=== PATIENT | female | born 1975 | race Caucasian/White ===

== ENCOUNTER → 2017-06-08 17:22 | Outpatient (CLI) | payer BC, SELFPAY ==
--- NOTE | 2017-06-08 17:35 | US_ITS ---
STUDY: ULTRASOUND OF THE FEMALE PELVIS - COMPLETE REASON FOR EXAM: Female, 41 years old. Pelvic pain TECHNIQUE: Transvaginal COMPARISON: October 25, 2010 FINDINGS: The uterus is anteverted and is in a midline position. The uterus measures 9.8x3.9x. cm. Normal uterine cervix. The endometrium measures 3 mm in thickness, and is hyperechoic. There is no demonstrated endometrial mass. There is no demonstrated myometrial mass. I.U.D. - The patient does have an I.U.D. The right ovary is visualized. The right ovary measures 2.7x2.2x1.7 cm. There is no right ovarian cyst or ovarian mass. There is no visualized right adnexal mass or complex lesion. There is normal arterial and normal venous vascularity. The left ovary is visualized. The left ovary measures 5x4.2x3.5 cm. There is a 36 x 38 x 30mm left ovarian cyst with a single internal septation. There is no visualized left adnexal mass or complex lesion. There is normal arterial and normal venous vascularity. There is no fluid in the cul-de-sac. The pre void volume of the bladder was 498 ml. US/Pelvic (Non ) IMPRESSION: The patient does have an I.U.D. 38mm septated left ovary cyst. Electronically Signed: Jeronimo Dickinson MD at 19:07 EDT , Service support ,
--- NOTE | 2017-06-08 17:48 | US_ITS ---
STUDY: ULTRASOUND OF THE FEMALE PELVIS - COMPLETE REASON FOR EXAM: Female, 41 years old. Pelvic pain TECHNIQUE: Transvaginal COMPARISON: October 25, 2010 FINDINGS: The uterus is anteverted and is in a midline position. The uterus measures 9.8x3.9x. cm. Normal uterine cervix. The endometrium measures 3 mm in thickness, and is hyperechoic. There is no demonstrated endometrial mass. There is no demonstrated myometrial mass. I.U.D. - The patient does have an I.U.D. The right ovary is visualized. The right ovary measures 2.7x2.2x1.7 cm. There is no right ovarian cyst or ovarian mass. There is no visualized right adnexal mass or complex lesion. There is normal arterial and normal venous vascularity. The left ovary is visualized. The left ovary measures 5x4.2x3.5 cm. There is a 36 x 38 x 30mm left ovarian cyst with a single internal septation. There is no visualized left adnexal mass or complex lesion. There is normal arterial and normal venous vascularity. There is no fluid in the cul-de-sac. The pre void volume of the bladder was 498 ml. US/Transvaginal Non- IMPRESSION: The patient does have an I.U.D. 38mm septated left ovary cyst. Electronically Signed: Jeronimo Dickinson MD at 19:07 EDT , Service support ,
== END ==
PROVIDERS: Family Provider Family Medicine; PCP Family Medicine; Visit Provider Family Medicine
DX: M54.5 Low back pain (principal); R10.2 Pelvic and perineal pain
CPT/HCPCS: 76830; 76856; 93976

== ENCOUNTER → 2017-06-22 17:30 | Outpatient (CLI) | payer BC, SELFPAY ==
--- NOTE | 2017-06-22 17:17 | BI_ITS ---
MAMMOGRAPHY - BILATERAL SCREENING REASON FOR EXAM: Female, 42 years old. Routine annual screening examination. PERTINENT HISTORY: Non-contributory. TECHNIQUE: Digital bilateral breast ramya (3D mammographic acquisition) in the CC and MLO projections. 2-D mediolateral oblique (MLO) and craniocaudad (CC) views of both breasts were obtained. CAD: Full Field Digital Mammography with Computer Added Detection was performed. COMPARISON: None. Baseline examination. FINDINGS: Breast Composition: There are scattered areas of fibroglandular density. There are no dominant masses or suspicious calcifications. No other significant abnormalities are identified. BI/SCREENING MAMM (CAD), BILAT IMPRESSION: Negative screening mammogram. Yearly followup mammogram recommended. (A) ASSESSMENT CATEGORY: BIRADS Category 1: Negative. A letter regarding these results will be sent to the patient by the facility within 30 days. Approximately 10% of breast cancers are not detected by mammography. A normal mammogram should not delay biopsy of a clinically suspicious abnormality. [id number] Electronically Signed: Reinaldo Harris MD at 9:50 EDT Tel [phone], Service support ,
== END ==
PROVIDERS: Family Provider Family Medicine; PCP Family Medicine; Visit Provider Family Medicine
DX: Z12.31 Encounter for screening mammogram for malignant neoplasm of breast (principal)
CPT/HCPCS: 77063; 77067

== ENCOUNTER → 2017-11-24 09:35 | Outpatient (CLI) | payer BC, SELFPAY ==
--- NOTE | 2017-11-24 09:37 | RAD_ITS ---
STUDY: X-RAY - RIGHT SHOULDER REASON FOR EXAM: Right shoulder pain after a fall 5 months ago. TECHNIQUE: 3 view(s) of the shoulder. COMPARISON: None. FINDINGS: Normal glenohumeral articulation. There is acromioclavicular arthrosis. There is a small os acromiale. Normal humeral head and visualized proximal humerus. The soft tissue structures are unremarkable. Normal visualized pulmonary apex. RAD/Shoulder min 2 Views IMPRESSION: Acromioclavicular arthrosis. Small os acromiale. Electronically Signed: Rob Sepulveda MD at 8:59 EDT Tel , Service support ,
== END ==
PROVIDERS: Family Provider Family Medicine; PCP Family Medicine; Referring Provider Family Medicine; Visit Provider Family Medicine
DX: M75.81 Other shoulder lesions, right shoulder (principal)
CPT/HCPCS: 73030

== ENCOUNTER 2018-02-27 13:00 | Outpatient (RCR) | payer BC, SELFPAY ==
--- NOTE | 2017-11-24 11:33 | HP.PTEVAL_ITS ---
Patient's Visit Information YANA PORRAS is a 42 year old F referred to Physical Therapy by Gisela Staton DO with a diagnosis of RIGHT ROTATOR CUFF TENDONITIS. Date of Evaluation: 11/24/17 Physical Therapist: Nicole Hoffman Visit Plan Frequency: 2-3x /Week Duration: 4-6 Weeks Plan: RIGHT SHOULDER US. POSTURE CORRECTION/STRENGTHENING, INSTRUCTION IN APPROPRIATE BODY MECHANICS AND ACTIVITY MODIFICATIONS. VILLA UE ROM, STRETCHING AND STRENGTHENING. HEP INSTRUCTION. 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 NOT OFF WORK. Disability: NO. Present symptoms: PAIN IN THE ENTIRE RIGHT SHOULDER AND DOWN ARM AND TO PROXIMAL FOREARM. NO NUMBNESS OR TINGLING. NO NECK PAIN. Present since: JUNE 2017. Pain Scale: Worst - 8/10 Least - 1/10. Currently: 03/25. Commenced as a result of: FALL IN DRIVEWAY ON [place] - TRIP OVER A BARRIER NEWLY PUT UP. WEREN'T USE TO IT BEING THERE. CAUGHT HERSELF WITH RIGHT UE. Symptoms at onset: RIGHT SHOULDER. PAIN TRAVELING DOWN ARM CAME LATER. Worse: ANYTHING THAT REQUIRES ME TO LIFT OR REACH. EVERYTHING. Better: NOT A WHOLE LOT BUT FEELS BETTER WITH ELBOW AT SIDE AND ALEVE HELPS SOMETIMES. Disturbed sleep: YES. Previous history/Previous treatment: ONLY TWO MD VISITS. X-RAY AND MRI ORDERED AT APPOINTMENT YESTERDAY. Dizziness: NO. Tinnitis: NO. Nausea: NO. Difficulty Swollowing: NO. Gait: NORMAL. NO OTHER FALLS. Accidents: NO. Unexplained weight loss: NO. Imaging: RIGHT SHOULDER X-RAY TODAY - RESULTS UNKNOWN YET. PMH/Recent major surgery: IDDM - TYPE 2, STOMACH ULCERS, DEPRESSION/ANXIETY. OTHER: PATIENT REPORTS DR. STATON DID NOT THINK SHE HAD A ROTATOR CUFF TEAR IN THE BEGINNING BUT WHEN SHE SAW DR. MICHEL YESTERDAY SHE WAS CONCERNED ABOUT FROZEN SHOULDER AND PARTIAL TEAR. - Objective Sitting Posture/Standing Posture: POOR. Active Correction of posture: NE. Other Observations: INDEP GAIT AND TRANSFERS. Motor deficit: LEFT UE STRENGTH WFL. Sensory deficit: NO. ROM deficit: 104 DEG RIGHT SHOULDER ACTIVE FLEX IN SITTING, 82 DEG ABD. 38 DEG ER AND 47 DEG IR IN SUPINE WITH 75 DEG SHOULDER ABD. PATIENT HAS INCREASED PAIN WITH ROM TESTING ALL PLANES. PASSIVE ROM IS SIMILAR TO AROM. Reflexes: VLILA UE'S 2/3. Dural Signs: NEG. Cervical Mvmt Loss: Flex: NIL. Pro: NIL. Ext: MIN. Ret: MOD. RSB: MIN. LSB: MIN. R Rot: MIN. L Rot: MIN. PATIENT DENIES ANY PAIN WITH CERVICAL ROM TESTING. Postural strength: POOR. Palpation: NO ACUTE TENDERNESS WITH PALPATION OF THE NECK OR SHOULDER REGIONS. ALSO NOT TENDER IN THORACIC SPINE. PATIENT DOES REPORT SOME SORENESS WITH PALPATION DISTAL TO THE ACROMIUM LATERALLY AND ANTERIOR. OTHER: ASSESSMENT OF MH RIGHT SHOULDER X 8 MIN - GOOD TOLERANCE. - Goals Goal 1:: DECREASE C/O RIGHT SHOULDER PAIN Goal Time Frame: 4-6 Weeks Goal 2:: INCREASE FUNCTIONAL ROM OF RIGHT SHOULDER Goal Time Frame: 4-6 Weeks Goal 3:: INCREASE FUNCTIONAL STRENGTH OF RIGHT SHOULDER Goal Time Frame: 4-6 Weeks Goal 4:: INDEP HEP Goal Time Frame: 4-6 Weeks - Rehabilitation Potential Rehabilitation Potential: Fair - Anticipated Interventions Patient/Client Instruction: Educate patient on: Condition, Plan of Care, Risk Factors, Benefits of Fitness Program For the Purpose of:: To improve self management Therapeutic Exercise to Include: Strength training, Body mechanics, Postural training, Passive ROM, Active ROM, Scapular Strength/Stabilization For the Purpose of:: To decrease pain, To increase ROM, To improve muscle performance and motor function, To increase tolerance to acti vity/condition/position, To improve ability of physical actions for home/community/work/leisure, To decrease soft tissue restriction Manual Therapy Techniques to Include: Mobilization, Passive ROM For the Purpose of:: To decrease pain, To increase ROM, To improve nutrient delivery to tissue TENS: Yes Cryotherapy (ice pack, ice massage): Yes Thermo therapy (hot pack): Yes Ultrasound (thermal/non thermal): Yes For the Purpose of:: To decrease pain, To decrease swelling/inflammation, To increase ROM Thank you for the opportunity to evaluate your patient. For Medicare and Medicare HMO plans, please review the plan of care and approve it. It will need to be FAXED BACK to us at [phone] for Medicare purposes. Please let me know if there are questions or concerns regarding this plan of care. Physician Signature: Date:
--- NOTE | 2018-02-16 13:51 | HP.PTREVAL ---
Gisela Theodore, DO, It has been my pleasure to treat YANA PORRAS over the last 4 visits for RIGHT ROTATOR CUFF TENDONITIS. Please see the progress note below for an update on the physical therapy plan of care! Subjective: PATIENT REPORTS SHE HAS NOT HAD THE MONEY TO COME UNTIL NOW. SHE REPORTS SHE HAS NOW SCHEDULED EVERYTHING RECOMMENDED. PATIENT REPORTS SHE HAS ALSO STARTED HAVING LEFT (UNINVOLVED SIDE) HAND AND FINGER PAIN, NUMBNESS AND TINGLING X ABOUT 3 WEEKS. DENIES NECK PAIN. SHE REPORTS SHE HAS NOT SEEN A DOCTOR FOR ANYTHING FOR ABOUT 3 MONTHS BEFORE STARTING PT AND DOES NOT HAVE ANY FOLLOW UP APPOINTMENTS SCHEDULED. PATIENT REPORTS SHE WAS DONIG SOME OF THE HOME EX'S BUT NOT CONSISTANTLY. SHE REPORTS SHE SEEMED TO DO FINE WITH THE HOME EX'S WHEN SHE DID THEM. HAS NOT DONE THEM SINCE MONDAY. PATIENT REPORTS THERE HAS BEEN NO CHANGE IN HER SHOULDER OVER-ALL IN THE LAST 3 MONTHS. Objective/Function: PATIENTS LAST ATTENDED PT APPOINTMENT WAS ABOUT 7 WEEKS AGO. PATIENT IS NOT IMPROVING AND HER DASH AND ROM MEASUREMENTS ARE WORSE THAN LAST VISIT. STANDING RIGHT SHOULDER FLEX 112 DEG, ABD 93 DEG. SUPINE IR/ER WITH 75 DEG ABD = 54/48 DEG. ROM IMPROVED WITH WAND EX'S TODAY. PATIENT DEMONSTRATED AND COMMUNICATED A GOOD UNDERSTANDING OF HOME INSTRUCTIONS AFTER GIVEN. Plan Plan: RIGHT SHOULDER US. POSTURE CORRECTION/STRENGTHENING, INSTRUCTION IN APPROPRIATE BODY MECHANICS AND ACTIVITY MODIFICATIONS. VILLA UE ROM, STRETCHING AND STRENGTHENING. HEP INSTRUCTION. Goals Goal 1:: DECREASE C/O RIGHT SHOULDER PAIN Goal Time Frame: 4-6 Weeks Goal 2:: INCREASE FUNCTIONAL ROM OF RIGHT SHOULDER Goal Time Frame: 4-6 Weeks Goal 3:: INCREASE FUNCTIONAL STRENGTH OF RIGHT SHOULDER Goal Time Frame: 4-6 Weeks Goal 4:: INDEP HEP Goal Time Frame: 4-6 Weeks Anticipated Interventions Patient/Client Instruction: Educate patient on: Condition, Plan of Care, Risk Factors, Benefits of Fitness Program For the Purpose of:: To improve self management Therapeutic Exercise to Include: Strength training, Body mechanics, Postural training, Passive ROM, Active ROM, Scapular Strength/Stabilization For the Purpose of:: To decrease pain, To increase ROM, To improve muscle performance and motor function, To increase tolerance to activity/condition/position, To improve ability of physical actions for home/community/work/leisure, To decrease soft tissue restriction Manual Therapy Techniques to Include: Mobilization, Passive ROM For the Purpose of:: To decrease pain, To increase ROM, To improve nutrient delivery to tissue TENS: Yes Cryotherapy (ice pack, ice massage): Yes Thermo therapy (hot pack): Yes Ultrasound (thermal/non thermal): Yes For the Purpose of:: To decrease pain, To decrease swelling/inflammation, To increase ROM Please do not hesitate to contact me at [phone] by phone or if you have questions or concerns regarding this new plan of care! Sincerely, Nicole Rich, PT, Cert MDT
--- NOTE | 2018-04-12 16:40 | HP.PT.NRP ---
HP - Discharge Summary (1) - Patient Information YANA PORRAS was seen in my office for initial evaluation on 11/24/17. The following Plan of Care was established for this patient: Initial Frequency: 2-3x /Week Initial Duration: 4-6 Weeks - Anticipated Interventions Patient/Client Instruction: Educate patient on: Condition, Plan of Care, Risk Factors, Benefits of Fitness Program For the Purpose of:: To improve self management Therapeutic Exercise to Include: Strength training, Body mechanics, Postural training, Passive ROM, Active ROM, Scapular Strength/Stabilization For the Purpose of:: To decrease pain, To increase ROM, To improve muscle performance and motor function, To increase tolerance to activity/condition/position, To improve ability of physical actions for home/community/work/leisure, To decrease soft tissue restriction Manual Therapy Techniques to Include: Mobilization, Passive ROM For the Purpose of:: To decrease pain, To increase ROM, To improve nutrient delivery to tissue TENS: Yes Cryotherapy (ice pack, ice massage): Yes Thermo therapy (hot pack): Yes Ultrasound (thermal/non thermal): Yes For the Purpose of:: To decrease pain, To decrease swelling/inflammation, To increase ROM This patient was last seen in our office 02/27/18. Pertinent comments regarding their Physical therapy will appear below: This patient has not returned to Physical Therapy and is appropriate to return to MD for further follow-up as needed. At this point I will be discontinuing this patient from physical therapy. I would be happy to see this patient again in the future if found appropriate by the physician. Thank you! Nicole Rich, PT, Cert MDT
== END 2018-02-27 19:00 | disposition home or self-care (01) ==
LOC: PT 13:00
PROVIDERS: Family Provider Family Medicine; PCP Family Medicine; Referring Provider Family Medicine; Visit Provider Family Medicine
DX: M25.511 Pain in right shoulder (principal); M75.81 Other shoulder lesions, right shoulder
CPT/HCPCS: 97035; 97110; 97161; 97530

== ENCOUNTER → 2018-03-05 16:57 | Outpatient (CLI) | payer BC, SELFPAY ==
--- NOTE | 2018-03-05 17:05 | MRI_ITS ---
STUDY: MRI RIGHT SHOULDER REASON FOR EXAM: Female, 42 years old. Pain. Recent fall. Limited range of motion. TECHNIQUE: Standardized fat and water weighted pulse sequences were obtained in all 3 orthogonal planes. COMPARISON: X-ray November 24, 2017 FINDINGS: There is supraspinatus tendinosis with tendon thickening, but without a demonstrated tendon tear. There is infraspinatus tendinosis with tendon thickening, but without a demonstrated tendon tear. Normal subscapularis tendon. Normal teres minor tendon. Normal supraspinatus muscle. Normal infraspinatus muscle. Normal subscapularis muscle. Normal teres minor muscle. There is a small volume joint effusion of the glenohumeral joint. Normal humeral head and visualized proximal humerus. Normal biceps labral complex. There is tendinosis with thickening of the proximal biceps tendon, series 3 images 10/20 through 14/20. There is fluid in the biceps tendon sheath. Normal labrum. Normal capsulo- ligamentous complex. Normal rotator interval. There is mild osteoarthritis of the acromioclavicular articulation. There is a Type II morphology (curved) acromion, with a neutral orientation. There is no subacromial-subdeltoid bursal fluid. Normal visualized coracohumeral and coracoacromial ligaments. Normal quadrilateral space. Normal axillary space. Normal deltoid muscle. Normal trapezius muscle. MRI/Upper Ext Joint Only(Routine) IMPRESSION: Tendinosis of the long head of the biceps. Tendinosis of the supraspinatus and infraspinatus. No full-thickness rotator cuff tear. Electronically Signed: Jonny Rivera MD at 23:28 EST , Service support ,
--- OUTSIDE RECORDS SUMMARY | 2018-05-08 04:35 | XMS RPT_ITS ---
:1975 Author Organization OHIP Care Team Providers Name Role Phone BRITTANY PACKER (TRUCK DRIVER INSTRUCTOR) Attending Unavailable Tayler Kowalski Attending Unavailable PROVIDER, UNKNOWN Referring Unavailable Malys, Gisela Primary Care Unavailable PROVIDER, UNKNOWN Referring Unavailable Malys, Gisela Primary Care Unavailable Alana Swann Attending Unavailable Dex, Tayler Attending Unavailable PROVIDER, UNKNOWN Referring Unavailable Malys, Gisela Primary Care Unavailable PROVIDER, UNKNOWN Referring Unavailable Malys, Gisela Primary Care Unavailable Dex, Tayler Attending Unavailable Malys, Gisela Attending Unavailable Malys, Gisela Referring Unavailable Malys, Gisela Primary Care Unavailable Malys, Gisela Primary Care Unavailable Referred, Self Attending Unavailable Fina, Milton Attending Unavailable Fina, Milton Referring Unavailable Malys, Gisela Primary Care Unavailable Malys, Gisela Attending Unavailable Malys, Gisela Referring Unavailable Malys, Gisela Primary Care Unavailable Malys, Gisela Attending Unavailable Malys, Gisela Referring Unavailable Malys, Gisela Primary Care Unavailable Brittany, Melissa Attending Unavailable Miedel, Melissa Referring Unavailable Malys, Gisela Primary Care Unavailable PROBLEMS PROBLEMS DATE TYPE CONDITION / CODE ATTENDING STATUS SOURCE 03/05/2018 Unknown M25.511 - Pain in Malys, Gisela Active [facility] right shoulder / Community M25.511(ICD-10) Hospital Repository 01/18/2018 Active Unknown / BRITTANY PACKER Active [place] UNK(Unknown) ([facility]) Clinic Main [place] Repository 07/24/2017 Admitting Type 2 diabetes DexEventifier Diagnosis mellitus without System complications / Repository E11.9(ICD-10) 07/24/2017 Admitting Gastro-esophageal Dex XGear Diagnosis reflux disease System without esophagitis Repository / K21.9(ICD-10) 07/24/2017 Admitting Sleep apnea, Dex XGear Diagnosis unspecified / System G47.30(ICD-10) Repository 07/24/2017 Admitting Obesity, Dex XGear Diagnosis unspecified / System E66.9(ICD-10) Repository 07/24/2017 Admitting Body mass index Dex XGear Diagnosis (BMI) 50-59.9 , System adult / Repository Z68.43(ICD-10) 07/24/2017 Admitting senior living (current) Dex XGear Diagnosis use of insulin / System Z79.4(ICD-10) Repository 06/08/2017 Unknown M54.5 - Low back Milton Harden Active [facility] pain / Community M54.5(ICD-10) Hospital Repository 06/08/2017 Unknown R10.2 - Pelvic and Miltno Harden Active [facility] perineal pain / Community R10.2(ICD-10) Hospital Repository PROCEDURES PROCEDURES No Procedure Records FoundRESULTS RESULTS UPPER EXT JOINT Observed: 03/05/2018 Status: F Source: [place] ONLY(ROUTINE) 5:06 PM [facility] HOSPITAL REPOSITORY [facility] Imaging Services [address] [place] [address] Upper Ext Joint Only(Routine) MR#: [id number] Acct: [id number] Name: YANA PORRAS Rep #: [id number] : 1975 F 42 From: Jonny Rivera MD PCP: Gisela Theodore DO Status: REG CLI Study: Upper Ext Joint Only(Routine) Date of Exam: 03/05/18 Exam# [id number] Ordering Dr: Gisela Theodore DO STUDY: MRI RIGHT SHOULDER REASON FOR EXAM: Female, 42 years old. Pain. Recent fall. Limited range of motion. TECHNIQUE: Standardized fat and water weighted pulse sequences were obtained in all 3 orthogonal planes. COMPARISON: X-ray November 24, 2017 FINDINGS: There is supraspinatus tendinosis with tendon thickening, but without a demonstrated tendon tear. There is infraspinatus tendinosis with tendon thickening, but without a demonstrated tendon tear. Normal subscapularis tendon. Normal teres minor tendon. Normal supraspinatus muscle. Normal infraspinatus muscle. Normal subscapularis muscle. Normal teres minor muscle. There is a small volume joint effusion of the glenohumeral joint. Normal humeral head and visualized proximal humerus. Normal biceps labral complex. There is tendinosis with thickening of the proximal biceps tendon, series 3 images 12/02 through . There is fluid in the biceps tendon sheath. Normal labrum. Normal capsulo- ligamentous complex. Normal rotator interval. There is mild osteoarthritis of the acromioclavicular articulation. There is a Type II morphology (curved) acromion, with a neutral orientation. There is no subacromial-subdeltoid bursal fluid. Normal visualized coracohumeral and coracoacromial ligaments. Normal quadrilateral space. Normal axillary space. Normal deltoid muscle. Normal trapezius muscle. MRI/Upper Ext Joint Only(Routine) IMPRESSION: Tendinosis of the long head of the biceps. Tendinosis of the supraspinatus and infraspinatus. No full-thickness rotator cuff tear. Electronically Signed: Jonny Rivera MD at 23:28 EST , Service support , CC: Gisela Theodore DO Human Resource Professional: Signed RE-EVALUATION - PT (1) Observed: 02/19/2018 Status: F Source: [place] 8:31 AM [facility] REPOSITORY [facility] [address] [place] [address]. [address] [place] [address] / REEVALUATION / MEDICARE RECERTIFICATION PHYSICAL THERAPY MR#: [id number] Acct: [id number] Name: YANA PORRAS Rep #: [id number] : 1975 42 From: Nicole Rich PT, Cert. T Referring Dr.: Gisela Theodore DO Status: REG RCR Insurance: [employer] INSURANCE Gisela Theodore DO, It has been my pleasure to treat YANA PORRAS over the last 4 visits for RIGHT ROTATOR CUFF TENDONITIS. Please see the progress note below for an update on the physical therapy plan of care! Subjective: PATIENT REPORTS SHE HAS NOT HAD THE MONEY TO COME UNTIL NOW. SHE REPORTS SHE HAS NOW SCHEDULED EVERYTHING RECOMMENDED. PATIENT REPORTS SHE HAS ALSO STARTED HAVING LEFT (UNINVOLVED SIDE) HAND AND FINGER PAIN, NUMBNESS AND TINGLING X ABOUT 3 WEEKS. DENIES NECK PAIN. SHE REPORTS SHE HAS NOT SEEN A DOCTOR FOR ANYTHING FOR ABOUT 3 MONTHS BEFORE STARTING PT AND DOES NOT HAVE ANY FOLLOW UP APPOINTMENTS SCHEDULED. PATIENT REPORTS SHE WAS DONIG SOME OF THE HOME EX'S BUT NOT CONSISTANTLY. SHE REPORTS SHE SEEMED TO DO FINE WITH THE HOME EX'S WHEN SHE DID THEM. HAS NOT DONE THEM SINCE MONDAY. PATIENT REPORTS THERE HAS BEEN NO CHANGE IN HER SHOULDER OVER-ALL IN THE LAST 3 MONTHS. Objective/Function: PATIENTS LAST ATTENDED PT APPOINTMENT WAS ABOUT 7 WEEKS AGO. PATIENT IS NOT IMPROVING AND HER DASH AND ROM MEASUREMENTS ARE WORSE THAN LAST VISIT. STANDING RIGHT SHOULDER FLEX 112 DEG, ABD 93 DEG. SUPINE IR/ER WITH 75 DEG ABD = 54/48 DEG. ROM IMPROVED WITH WAND EX'S TODAY. PATIENT DEMONSTRATED AND COMMUNICATED A GOOD UNDERSTANDING OF HOME INSTRUCTIONS AFTER GIVEN. Plan Plan: RIGHT SHOULDER US. POSTURE CORRECTION/STRENGTHENING, INSTRUCTION IN APPROPRIATE BODY MECHANICS AND ACTIVITY MODIFICATIONS. VILLA UE ROM, STRETCHING AND STRENGTHENING. HEP INSTRUCTION. Goals Goal 1:: DECREASE C/O RIGHT SHOULDER PAIN Goal Time Frame: 4-6 Weeks Goal 2:: INCREASE FUNCTIONAL ROM OF RIGHT SHOULDER Goal Time Frame: 4-6 Weeks Goal 3:: INCREASE FUNCTIONAL STRENGTH OF RIGHT SHOULDER Goal Time Frame: 4-6 Weeks Goal 4:: INDEP HEP Goal Time Frame: 4-6 Weeks Anticipated Interventions Patient/Client Instruction: Educate patient on: Condition, Plan of Care, Risk Factors, Benefits of Fitness Program For the Purpose of:: To improve self management Therapeutic Exercise to Include: Strength training, Body mechanics, Postural training, Passive ROM, Active ROM, Scapular Strength/Stabilization For the Purpose of:: To decrease pain, To increase ROM, To improve muscle performance and motor function, To increase tolerance to activity/condition/position, To improve ability of physical actions for home/community/work/leisure, To decrease soft tissue restriction Manual Therapy Techniques to Include: Mobilization, Passive ROM For the Purpose of:: To decrease pain, To increase ROM, To improve nutrient delivery to tissue TENS: Yes Cryotherapy (ice pack, ice massage): Yes Thermo therapy (hot pack): Yes Ultrasound (thermal/non thermal): Yes For the Purpose of:: To decrease pain, To decrease swelling/inflammation, To increase ROM Please do not hesitate to contact me at [phone] by phone or if you have questions or concerns regarding this new plan of care! Sincerely, Nicole Rich PT, Cert MDT <Electronically signed by Nicole Rich PT, Cert. MDT> 02/19/18 0831 CC: Gisela Abarcaluiza HIDALGO CHAPINCITO Signed For Medicare only, by signing this I certify the plan of care. Physicians Signature Date CNCO Observed: 01/29/2018 Status: COMPLETED Source: [place] 12:00 AM [facility] REPOSITORY Letter Text Brittany Packer CNP [facility] [address] [place], [place] [address] Yana Zelaya Gregory [facility] [address] [facility] [address] 01/29/2018 CCF #: [id number] Dear Yana, This letter is to inform you that your pap smear came back normal but your HPV (human papilloma virus) was positive. Because of the positive HPV, we will repeat your pap and HPV at your yearly exam next year. If you have any questions, please do not hesitate to call our office or message me on My Chart. We appreciate your confidence in choosing the [facility] for your medical care and we look forward to seeing you at your next appointment. Please feel free to call us if you have any questions regarding your test results at the phone number above. Sincerely, Brittany Packer CNP Observed: 01/19/2018 Status: F Source: [place] TRICHOMONAS PREP 3:45 PM [facility] REPOSITORY Sp. Request/Comment: - Swab Smear Result - Negative for Trichomonas vaginalis antigen This test was developed and its performance characteristics determined by [facility]'s [facility]ent[facility] [place] (-[facility]). It has not been cleared or approved by the FDA. -[facility] is regulated under CLIA as qualified to perform high-complexity testing. This test is used for clinical purposes. It should not be regarded as investigational or for research. Performed By: #### TRICHO #### [facility] [address] [place], [place] [address] HPV W/GENOTYPE Collected: 01/18/2018 Status: F Source: [place] 3:20 PM [facility] REPOSITORY TYPE CODE TESTS RESULT OUT OF RANGE REFERENCE UNITS LAB HPVT16 HPV HighRisk Negative for Type 16 HPV DNA high risk type 16 by PCR. LAB HPVT18 HPV HighRisk Negative for Type 18 HPV DNA high risk type 18 by PCR. LAB HPVHRO Abnormal HPV HighRisk Positive for Alert Other one or more of the following HPV DNA high risk types: 31,33,35,39,45 ,51,52,56,58,5 9,66,68 by PCR Result Comment: This test was developed and its performance characteristics determined by [facility]'s [facility] [place] ([facility] It has not been cleared or approved by the FDA. -[facility] is regulated under CLIA as qualified to perform high-complexity testing. This test is used for clinical purposes. It should not be regarded as inv estigational or for research. Performed By: #### HPVHRR #### [facility] [address] [place], [place] [address] CYTOLOGY Observed: 01/18/2018 Status: C Source: [place] 3:20 PM [facility] REPOSITORY ADDITIONAL PROCEDURES PRESENT Specimen originated from [facility] Specimen #: [id number] Submitting Physician: BRITTANY PACKER SPECIMEN SUBMITTED A: CERVICAL, SCREENING, FLUID FINAL DIAGNOSIS A. CERVICAL, SCREENING, FLUID Satisfactory for interpretation. No endocervical component. Negative for intraepithelial lesion or malignancy. Predominance of coccobacilli consistent with shift in vaginal tete. This specimen has been analyzed by the ThinPrep Imaging System, an automated imaging and review system, which assists the laboratory in evaluating cells on ThinPrep Pap tests. Following automated imaging, selected ravi from every slide are reviewed by a vitamin manager. [employer] [place](ASCP) (Electronic Signature) ADDITIONAL PROCEDURE(S) HUMAN PAPILLOMA VIRUS Date Ordered: 01/22/2018 Date Reported: 01/23/2018 Procedure Results and Interpretation Negative for HPV DNA high risk type 16 by PCR. Negative for HPV DNA high risk type 18 by PCR. Positive for one or more of the following HPV DNA high risk types: 31,33,35,39,45,51,52,56,58,59,66,68 by PCR(*) This test was developed and its performance characteristics determined by [facility]'s [facility] [place] ([facility]). It has not been cleared or approved by the FDA. RT-[facility] is regulated under CLIA as qualified to perform high-complexity testing. This test is used for clinical purposes. It should not be regarded as investigational or for research. CLINICAL DATA ROUTINE EXAM, HPV Testing: Yes, automatic HPV patients over 30 Date of Last Menstrual Period: IUD STAINS A: CERVICAL, SCREENING, FLUID THIN PREP MUSIC MANAGER Alana Tolentino M.D., Solution Sales Senior Executive Date of Report: 01/29/2018 Date of Procedure: 01/18/2018 Date of Receipt: 01/22/2018 Submitted by: BRITTANY PACKER Location: [facility] Diagnostic interpretation performed at [facility], [address] [place] [address]. The Pap Smear is a screening test for cervical cancer. False negative results occur with all screening tests, emphasizing the need for rescreening at recommended intervals, and clinical correlation. PROGRESS Observed: 01/18/2018 Status: COMPLETED Source: [place] 3:16 PM [facility] REPOSITORY HNO ID: [id number] Author: Brittany Schaeffer) [place] Service: (none) Author Type: Nurse Practitioner Type: Progress Notes Filed: 01/18/2018 3:45 PM Note Text: Yana Porras is a 42 year old who presents for her annual gynecologic exam without complaints. Menses: no menses - Mirena IUD. Contraception: IUD HPV vaccine: N/A Last Pap: 2011 normal HPV: negative History of abnormal pap: Yes Last mammogram: 2018normal Sexually active: Yes Patient concerns for STD exposure: Yes: Pain with intercourse: No Postcoital bleeding: No Obstetric History T0 L1 SAB1 TAB0 Ectopic0 Multiple0 Live Births0 PAST MEDICAL HISTORY Diagnosis Date - Diabetes mellitus (HCC) - Gestational diabetes - Migraines started in childhood - Pre-eclampsia PAST SURGICAL HISTORY Procedure Laterality Date - CHG DELIVERY 2009 - DANDC, DIAG AND/OR THERAPEUTIC Dilation AND curettage - INSERTION OF IUD 2014 - PAST SURGICAL HISTORY OF soem kind of lump removed from right groin: unsure what type FAMILY HISTORY Problem Relation Age of Onset - Arthritis Mother - Psychiatry Father committed suicide - Cancer Paternal Grandfather pancreatic cancer SOCIAL HISTORY Social History Substance Use Topics - Smoking status: Never Smoker - Smokeless tobacco: Never Used - Alcohol use Yes Comment: occasional REVIEW OF SYSTEMS Abdomen: No abdominal pain, nausea, vomiting, diarrhea, or constipation. No bloating, early satiety, indigestion, or increased flatulence. Bladder: No dysuria, gross hematuria, urinary frequency, urinary urgency, or incontinence. Breast: No breast lumps, nipple d/c, overlying skin changes, redness or skin retraction. Allergies and current medication updated:Yes EXAM: Ht 5' 1 (1.55m) Wt 285 lb (129.3kg) BMI 53.88 kg/(m2). GENERAL: pleasant, female in no apparent distress HEENT: Normocephalic, atraumatic, mucus membranes moist and no lesions NECK: Supple, full range of motion, no adenopathy and thyroid normal DERMATOLOGY: Normal, without lesions, non-icteric and non-hirsute BREAST: soft, non-tender, symmetric, no dominant mass, normal nipple-areolar complex, no lymphadenopathy and no nipple discharge CHEST: Normal inspiratory effort ABDOMEN: soft, non-tender and no masses PELVIC: external genitalia normal, normal Bartholin's glands, urethra, Vandling's glands, no vulvar lesions, no cervical lesions, good vaginal support, physiologic discharge present, normal appearing perineal body and perianal region, well estrogenized BIMANUAL: uterus normal size, shape and consistency, no adnexal masses, non-tender and no cervical motion tenderness RECTOVAGINAL: deferred. NEURO: alert and oriented x3,exam grossly non-focal EXTREMITIES: normal ASSESSMENT/PLAN: 1) Health maintenance: Pap done with HPV. Mammogram up to date . Nutrition, exercise and routine health maintenance exams reviewed. Calcium/Vitamin D supplementation information provided. 2) Contraception: IUD. Contraceptive options reviewed and information provided. 3) STD screening: Accepted STD check for Gonorrhea and Chlamydia. 4) Follow up one year or sooner as needed Brittany Packer APRN.CNP CNOV Observed: 01/18/2018 Status: COMPLETED Source: [place] 3:00 PM [facility] REPOSITORY Office Visit (WOOB) YANA PORRAS ([id number]) 1975 F Date Time Provider Department 01/18/18 3:00 PM BRITTANY PACKER (MARILU) WOOB During your visit today, we recorded the following information about you: Blood pressure Weight Height 116/82 129.3 kg 1.549 m Brittany Packer APRN.CNP 01/18/2018 3:45 PM Signed Yana Zelaya Gregory is a 42 year old who presents for her annual gynecologic exam without complaints. Menses: no menses - Mirena IUD. Contraception: IUD HPV vaccine: N/A Last Pap: 2011 normal HPV: negative History of abnormal pap: Yes Last mammogram: 2018normal Sexually active: Yes Patient concerns for STD exposure: Yes: Pain with intercourse: No Postcoital bleeding: No Obstetric History T0 L1 SAB1 TAB0 Ectopic0 Multiple0 Live Births0 PAST MEDICAL HISTORY Diagnosis Date - Diabetes mellitus (HCC) - Gestational diabetes - Migraines started in childhood - Pre-eclampsia PAST SURGICAL HISTORY Procedure Laterality Date - CHG DELIVERY 2009 - DANDC, DIAG AND/OR THERAPEUTIC Dilation AND curettage - INSERTION OF IUD 2014 - PAST SURGICAL HISTORY OF soem kind of lump removed from right groin: unsure what type FAMILY HISTORY Problem Relation Age of Onset - Arthritis Mother - Psychiatry Father committed suicide - Cancer Paternal Grandfather pancreatic cancer SOCIAL HISTORY Social History Substance Use Topics - Smoking status: Never Smoker - Smokeless tobacco: Never Used - Alcohol use Yes Comment: occasional REVIEW OF SYSTEMS Abdomen: No abdominal pain, nausea, vomiting, diarrhea, or constipation. No bloating, early satiety, indigestion, or increased flatulence. Bladder: No dysuria, gross hematuria, urinary frequency, urinary urgency, or incontinence. Breast: No breast lumps, nipple d/c, overlying skin changes, redness or skin retraction. Allergies and current medication updated:Yes EXAM: Ht 5' 1 (1.55m) Wt 285 lb (129.3kg) BMI 53.88 kg/(m2). GENERAL: pleasant, female in no apparent distress HEENT: Normocephalic, atraumatic, mucus membranes moist and no lesions NECK: Supple, full range of motion, no adenopathy and thyroid normal DERMATOLOGY: Normal, without lesions, non-icteric and non-hirsute BREAST: soft, non-tender, symmetric, no dominant mass, normal nipple-areolar complex, no lymphadenopathy and no nipple discharge CHEST: Normal inspiratory effort ABDOMEN: soft, non-tender and no masses PELVIC: external genitalia normal, normal Bartholin's glands, urethra, Vandling's glands, no vulvar lesions, no cervical lesions, good vaginal support, physiologic discharge present, normal appearing perineal body and perianal region, well estrogenized BIMANUAL: uterus normal size, shape and consistency, no adnexal masses, non-tender and no cervical motion tenderness RECTOVAGINAL: deferred. NEURO: alert and oriented x3,exam grossly non-focal EXTREMITIES: normal ASSESSMENT/PLAN: 1) Health maintenance: Pap done with HPV. Mammogram up to date . Nutrition, exercise and routine health maintenance exams reviewed. Calcium/Vitamin D supplementation information provided. 2) Contraception: IUD. Contraceptive options reviewed and information provided. 3) STD screening: Accepted STD check for Gonorrhea and Chlamydia. 4) Follow up one year or sooner as needed Brittany Packer APRN.TRUCK DRIVER INSTRUCTOR Referring Provider: SELF [200] Allergies As of Date: 01/18/2018 Noted Allergy Reaction PAMELOR (NORTRIPTYLINE) 09/28/2009 KIWI (ACTINIDIA CHINENSIS) 07/17/2017 8 - GI Upset TUNA OIL 07/17/2017 8 - GI Upset Date Reviewed: 01/18/2018 Reviewed by: Brittany (Marilu) Birdie - Fully Assessed Reason for Visit: Yearly Exam [187] Primary Visit Diagnosis:Encounter for gynecological examination (general) (routine) without abnormal findings [Z01.419] Other Visit Diagnoses:Screening for cervical cancer [Z12.4] Encounter for screening for human papillomavirus (HPV) [Z11.51] Encounter for screening mammogram for breast cancer [Z12.31] Screening for STDs (sexually transmitted diseases) [Z11.3] Order(s):PAP FLUID CERVICAL SCREENING [[id number]] Order #: [id number] ERIN SCREENING [[id number]] Order #: [id number] FUTURE GC/CHLAMYDIA DNA DET [SQGCCAMP] Order #: [id number] TRICHOMONAS PREP [SQTRICHO] Order #: [id number] Prescriptions as of 01/18/2018 Sig: TOPIRAMATE 50 MG TABLET Take 50 mg by mouth twice vasquez* LANTUS SUBCUTANEOUS Inject subcutaneously. LIRAGLUTIDE 0.6 MG/0.1 ML (18* Inject subcutaneously once da* ERGOCALCIFEROL (VITAMIN D2) 5* Take 50,000 Units by mouth on* TRADJENTA ORAL Take by mouth. GLIPIZIDE ORAL Take by mouth. OMEPRAZOLE ORAL Take by mouth. EFFEXOR ORAL Take by mouth. ALBUTEROL SULFATE HFA 90 MCG/* Inhale 2 Puffs as instructed * * LEVONORGESTREL 20 MCG/24 HR (* CPAP by Does not apply route Problem List As Of Date: 01/18/2018 (None) Disposition: Return in 1 year (on 01/18/2019) for Annual Exam. Follow-up and Disposition History Recorded Encounter Status:Closed by BRITTANY PACKER on 01/18/18 GC/CHLAMYDIA AMPLIF Collected: 01/18/2018 Status: F Source: [place] 5:27 AM [facility] REPOSITORY TYPE CODE TESTS RESULT OUT OF REFERENCE UNITS RANGE LAB GCCTSR GC/Chlam Amp Cervix Source LAB GCAMPL GC Negative Amplification for Neisseria gonorrhoeae by amplification. LAB CLAMPL Chlamydia Negative Amplif for Chlamydia trachomatis by amplification. Performed By: #### GCCT #### [facility] [address] [place], [place] [address] PROGRESS Observed: 01/03/2018 Status: COMPLETED Source: [place] 9:35 AM [facility] REPOSITORY HNO ID: [id number] Author: Natasha Candelario Service: (none) Author Type: Nurse Practitioner Type: Progress Notes Filed: 01/03/2018 9:55 AM Note Text: Subjective HPI Pt presents with c/o 2 day hx neck pain, muscle tightness. States awoke yesterday morning with posterior neck pain and limited ROM. Pain occurs only when turning head from side to side. Applied heat throughout the day and took aleve twice and again this am with no improvement. Denies recent/remote injury. Denies ALLEN, vision change, radiculopathy, sensory changes. Review of Systems Constitutional: Negative for chills and fever. Musculoskeletal: Positive for myalgias and neck pain. Negative for back pain and falls. Objective Physical Exam Constitutional: She is oriented to person, place, and time and well-developed, well-nourished, and in no distress. No distress. Musculoskeletal: Cervical back: She exhibits tenderness and spasm. She exhibits normal range of motion, no bony tenderness, no swelling, no edema, no deformity, no laceration, no pain and normal pulse. Back: Full active ROM against resistance with slow movement and c/o discomfort. Muscle tightness and tenderness to area noted. No lymphadenopathy. Cap refill 2 sec. Pedal pulses 2+. Gait normal. Neurological: She is alert and oriented to person, place, and time. Skin: Skin is warm and dry. She is not diaphoretic. BP 132/84 Pulse 86 Temp 36.9 ?C (98.4 ?F) (Tympanic) Resp 18 Wt 129.5 kg (285 lb 6.4 oz) BMI 53.93 kg/m? .Patient presents with: Neck Pain: symptoms started yesterday-cannot recall an injury- has had these symptoms before PAST MEDICAL HISTORY Diagnosis Date - Diabetes mellitus (HCC) - Gestational diabetes - Migraines started in childhood - Pre-eclampsia PAST SURGICAL HISTORY Procedure Laterality Date - CHG DELIVERY 2009 - DANDC, DIAG AND/OR THERAPEUTIC Dilation AND curettage - PAST SURGICAL HISTORY OF soem kind of lump removed from right groin: unsure what type ALLERGIES Pamelor [Nortriptyline] MEDICATIONS insulin glargine,hum.rec.anlog (LANTUS SUBCUTANEOUS) Inject subcutaneously. liraglutide (VICTOZA) 0.6 mg/ 0.1 ml subcutaneous pen injector Inject subcutaneously once daily. ergocalciferol, vitamin D2, (VITAMIN D) 50,000 unit capsule Take 50,000 Units by mouth once each week. LINAGLIPTIN (TRADJENTA ORAL) Take by mouth. GLIPIZIDE ORAL Take by mouth. OMEPRAZOLE ORAL Take by mouth. VENLAFAXINE HCL (EFFEXOR ORAL) Take by mouth. albuterol HFA 90 mcg/actuation inhaler Inhale 2 Puffs as instructed every 4 hours as needed. levonorgestrel 20 mcg/24 hr INTRAUTERINE IUD cyclobenzaprine (FLEXERIL) 10 mg tablet Take 1 tablet by mouth three times daily as needed for up to 7 days. predniSONE (DELTASONE) 20 mg tablet Take 2 tablets by mouth once daily for 5 days. Take daily with food. FAMILY HISTORY Problem Relation Age of Onset - Arthritis Mother - Psychiatry Father committed suicide - Cancer Paternal Grandfather pancreatic cancer Social History Substance Use Topics - Smoking status: Never Smoker - Smokeless tobacco: Never Used - Alcohol use Yes Comment: occasional ASSESSMENT/PLAN: 1. Neck pain - ICD9: 723.1, ICD10: M54.2 (primary diagnosis) PREDNISONE 20 MG TABLET Pt requested prednisone vs NSAID. Encouraged to closely monitor blood sugars. 2. Muscle tightness - ICD9: 728.9, ICD10: M62.89 - CYCLOBENZAPRINE 10 MG TABLET Continue prn application of heat. Reviewed red flat SANDS requiring emergent evaluation. The patient is instructed to return or seek emergency treatment if symptoms become worse or with any acute change in condition. The patient verbalizes understanding and is in agreement with plan of care. Natasha Candelario, TRUCK DRIVER INSTRUCTOR CNOV Observed: 01/03/2018 Status: COMPLETED Source: [place] 8:45 AM [facility] RE[facility]ITORY [facility] YANA PORRAS Nathalie ([id number]) 1975 F Date Time Provider Department 01/03/18 8:45 AM NATASHA CANDELARIO [facility] During your visit today, we recorded the following information about you: Temperature Pulse Respiration Blood pressure 98.4 degrees 86/minute 18/minute 132/84 Weight 129.5 kg Natasha Candelario APRN.TRUCK DRIVER INSTRUCTOR 01/03/2018 9:55 AM Signed Subjective HPI Pt presents with c/o 2 day hx neck pain, muscle tightness. States awoke yesterday morning with posterior neck pain and limited ROM. Pain occurs only when turning head from side to side. Applied heat throughout the day and took aleve twice and again this am with no improvement. Denies recent/remote injury. Denies ALLEN, vision change, radiculopathy, sensory changes. Review of Systems Constitutional: Negative for chills and fever. Musculoskeletal: Positive for myalgias and neck pain. Negative for back pain and falls. Objective Physical Exam Constitutional: She is oriented to person, place, and time and well-developed, well-nourished, and in no distress. No distress. Musculoskeletal: Cervical back: She exhibits tenderness and spasm. She exhibits normal range of motion, no bony tenderness, no swelling, no edema, no deformity, no laceration, no pain and normal pulse. Back: Full active ROM against resistance with slow movement and c/o discomfort. Muscle tightness and tenderness to area noted. No lymphadenopathy. Cap refill 2 sec. Pedal pulses 2+. Gait normal. Neurological: She is alert and oriented to person, place, and time. Skin: Skin is warm and dry. She is not diaphoretic. BP 132/84 Pulse 86 Temp 36.9 ?C (98.4 ?F) (Tympanic) Resp 18 Wt 129.5 kg (285 lb 6.4 oz) BMI 53.93 kg/m? .Patient presents with: Neck Pain: symptoms started yesterday-cannot recall an injury- has had these symptoms before PAST MEDICAL HISTORY Diagnosis Date - Diabetes mellitus (HCC) - Gestational diabetes - Migraines started in childhood - Pre-eclampsia PAST SURGICAL HISTORY Procedure Laterality Date - G DELIVERY 2009 - DANDC, DIAG AND/OR THERAPEUTIC Dilation AND curettage - PAST SURGICAL HISTORY OF soem kind of lump removed from right groin: unsure what type ALLERGIES Pamelor [Nortriptyline] MEDICATIONS insulin glargine,hum.rec.anlog (LANTUS SUBCUTANEOUS) Inject subcutaneously. liraglutide (VICTOZA) 0.6 mg/ 0.1 ml subcutaneous pen injector Inject subcutaneously once daily. ergocalciferol, vitamin D2, (VITAMIN D) 50,000 unit capsule Take 50,000 Units by mouth once each week. LINAGLIPTIN (TRADJENTA ORAL) Take by mouth. GLIPIZIDE ORAL Take by mouth. OMEPRAZOLE ORAL Take by mouth. VENLAFAXINE HCL (EFFEXOR ORAL) Take by mouth. albuterol HFA 90 mcg/actuation inhaler Inhale 2 Puffs as instructed every 4 hours as needed. levonorgestrel 20 mcg/24 hr INTRAUTERINE IUD cyclobenzaprine (FLEXERIL) 10 mg tablet Take 1 tablet by mouth three times daily as needed for up to 7 days. predniSONE (DELTASONE) 20 mg tablet Take 2 tablets by mouth once daily for 5 days. Take daily with food. FAMILY HISTORY Problem Relation Age of Onset - Arthritis Mother - Psychiatry Father committed suicide - Cancer Paternal Grandfather pancreatic cancer Social History Substance Use Topics - Smoking status: Never Smoker - Smokeless tobacco: Never Used - Alcohol use Yes Comment: occasional ASSESSMENT/PLAN: 1. Neck pain - ICD9: 723.1, ICD10: M54.2 (primary diagnosis) PREDNISONE 20 MG TABLET Pt requested prednisone vs NSAID. Encouraged to closely monitor blood sugars. 2. Muscle tightness - ICD9: 728.9, ICD10: M62.89 - CYCLOBENZAPRINE 10 MG TABLET Continue prn application of heat. Reviewed red flat SANDS requiring emergent evaluation. The patient is instructed to return or seek emergency treatment if symptoms become worse or with any acute change in condition. The patient verbalizes understanding and is in agreement with plan of care. Natasha Candelario CNP Referring Provider: SELF [200] Allergies As of Date: 01/03/2018 Noted Allergy Reaction PAMELOR (NORTRIPTYLINE) 09/28/2009 Date Reviewed: 01/03/2018 Reviewed by: Velma Sanders LPN - Fully Assessed Reason for Visit: Neck Pain [135] Cmt: symptoms started yesterday-cannot recall an injury-has had these symptoms before Primary Visit Diagnosis:Neck pain [M54.2] Other Visit Diagnosis:Muscle tightness [M62.89] Order(s):cyclobenzaprine (FLEXERIL) 10 mg tabletTake 1 tablet by mouth three times daily as needed for up to 7 days.Disp: 21 tabletRfl: 0 predniSONE (DELTASONE) 20 mg tabletTake 2 tablets by mouth once daily for 5 days. Take daily with food.Disp: 10 tabletRfl: 0 Prescriptions as of 01/03/2018 Sig: LANTUS SUBCUTANEOUS Inject subcutaneously. LIRAGLUTIDE 0.6 MG/0.1 ML (18* Inject subcutaneously once da* ERGOCALCIFEROL (VITAMIN D2) 5* Take 50,000 Units by mouth on* TRADJENTA ORAL Take by mouth. GLIPIZIDE ORAL Take by mouth. OMEPRAZOLE ORAL Take by mouth. EFFEXOR ORAL Take by mouth. ALBUTEROL SULFATE HFA 90 MCG/* Inhale 2 Puffs as instructed * * LEVONORGESTREL 20 MCG/24 HR (* CYCLOBENZAPRINE 10 MG TABLET Take 1 tablet by mouth three * PREDNISONE 20 MG TABLET Take 2 tablets by mouth once * Problem List As Of Date: 01/03/2018 (None) Prescriptions ordered this encounter Disp Refills Start End CYCLOBENZAPRINE 10 MG TABLET 21 t* 0 01/03/2018 01/10/2018 Route: ORAL Sig: Take 1 tablet by mouth three times daily as needed for up to 7 days. PREDNISONE 20 MG TABLET 10 t* 0 01/03/2018 01/08/2018 Route: ORAL Sig: Take 2 tablets by mouth once daily for 5 days. Take daily with food. Encounter Status:Closed by NATASHA CANDELARIO CNP on 01/03/18 INITAL EVALUATION (1) Observed: 11/24/2017 Status: F Source: [place] - [place] 5:00 PM [facility] REPOSITORY [facility] [address] [place], [place] [address] Fax REHABILITATION SERVICES INITIAL EVALUATION MR#: [id number] Acct: [id number] Name: YANA PORRAS Rep #: [id number] : 1975 42 From: Nicole Rich PT, Cert. MDT Referring Dr.: Gisela Theodore DO Status: REG R Insurance: [employer] SELF PAY INSURANCE Patient's Visit Information YANA PORRAS is a 42 year old F referred to Physical Therapy by Gisela Theodore DO with a diagnosis of RIGHT ROTATOR CUFF TENDONITIS. Date of Evaluation: 11/24/17 Physical Therapist: Nicole Rich - Visit Plan Frequency: 2-3x /Week Duration: 4-6 Weeks Plan: RIGHT SHOULDER US. POSTURE CORRECTION/STRENGTHENING, INSTRUCTION IN APPROPRIATE BODY MECHANICS AND ACTIVITY MODIFICATIONS. VILLA UE ROM, STRETCHING AND STRENGTHENING. HEP INSTRUCTION. 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 NOT OFF WORK. Disability: NO. Present symptoms: PAIN IN THE ENTIRE RIGHT SHOULDER AND DOWN ARM AND TO PROXIMAL FOREARM. NO NUMBNESS OR TINGLING. NO NECK PAIN. Present since: JUNE 2017. Pain Scale: Worst - 8/10 Least - 1/10. Currently: 03/25. Commenced as a result of: FALL IN DRIVEWAY ON [place] - TRIP OVER A BARRIER NEWLY PUT UP. WEREN'T USE TO IT BEING THERE. CAUGHT HERSELF WITH RIGHT UE. Symptoms at onset: RIGHT SHOULDER. PAIN TRAVELING DOWN ARM CAME LATER. Worse: ANYTHING THAT REQUIRES ME TO LIFT OR REACH. EVERYTHING. Better: NOT A WHOLE LOT BUT FEELS BETTER WITH ELBOW AT SIDE AND ALEVE HELPS SOMETIMES. Disturbed sleep: YES. Previous history/Previous treatment: ONLY TWO MD VISITS. X-RAY AND MRI ORDERED AT APPOINTMENT YESTERDAY. Dizziness: NO. Tinnitis: NO. Nausea: NO. Difficulty Swollowing: NO. Gait: NORMAL. NO OTHER FALLS. Accidents: NO. Unexplained weight loss: NO. Imaging: RIGHT SHOULDER X- RAY TODAY - RESULTS UNKNOWN YET. PMH/Recent major surgery: IDDM - TYPE 2, STOMACH ULCERS, DEPRESSION/ANXIETY. OTHER: PATIENT REPORTS DR. THEODORE DID NOT THINK SHE HAD A ROTATOR CUFF TEAR IN THE BEGINNING BUT WHEN SHE SAW DR. SOTO YESTERDAY SHE WAS CONCERNED ABOUT FROZEN SHOULDER AND PARTIAL TEAR. - Objective Sitting Posture/Standing Posture: POOR. Active Correction of posture: NE. Other Observations: INDEP GAIT AND TRANSFERS. Motor deficit: LEFT UE STRENGTH WFL. Sensory deficit: NO. ROM deficit: 104 DEG RIGHT SHOULDER ACTIVE FLEX IN SITTING, 82 DEG ABD. 38 DEG ER AND 47 DEG IR IN SUPINE WITH 75 DEG SHOULDER ABD. PATIENT HAS INCREASED PAIN WITH ROM TESTING ALL PLANES. PASSIVE ROM IS SIMILAR TO AROM. Reflexes: VILLA UE'S 2/3. Dural Signs: NEG. Cervical Mvmt Loss: Flex: NIL. Pro: NIL. Ext: MIN. Ret: MOD. RSB: MIN. LSB: MIN. R Rot: MIN. L Rot: MIN. PATIENT DENIES ANY PAIN WITH CERVICAL ROM TESTING. Postural strength: POOR. Palpation: NO ACUTE TENDERNESS WITH PALPATION OF THE NECK OR SHOULDER REGIONS. ALSO NOT TENDER IN THORACIC SPINE. PATIENT DOES REPORT SOME SORENESS WITH PALPATION DISTAL TO THE ACROMIUM LATERALLY AND ANTERIOR. OTHER: ASSESSMENT OF MH RIGHT SHOULDER X 8 MIN - GOOD TOLERANCE. - Goals Goal 1:: DECREASE C/O RIGHT SHOULDER PAIN Goal Time Frame: 4-6 Weeks Goal 2:: INCREASE FUNCTIONAL ROM OF RIGHT SHOULDER Goal Time Frame: 4-6 Weeks Goal 3:: INCREASE FUNCTIONAL STRENGTH OF RIGHT SHOULDER Goal Time Frame: 4-6 Weeks Goal 4:: INDEP HEP Goal Time Frame: 4-6 Weeks - Rehabilitation Potential Rehabilitation Potential: Fair - Anticipated Interventions Patient/Client Instruction: Educate patient on: Condition, Plan of Care, Risk Factors, Benefits of Fitness Program For the Purpose of:: To improve self management Therapeutic Exercise to Include: Strength training, Body mechanics, Postural training, Passive ROM, Active ROM, Scapular Strength/Stabilization For the Purpose of:: To decrease pain, To increase ROM, To improve muscle performance and motor function, To increase tolerance to activity/condition/position, To improve ability of physical actions for home/community/work/leisure, To decrease soft tissue restriction Manual Therapy Techniques to Include: Mobilization, Passive ROM For the Purpose of:: To decrease pain, To increase ROM, To improve nutrient delivery to tissue TENS: Yes Cryotherapy (ice pack, ice massage): Yes Thermo therapy (hot pack): Yes Ultrasound (thermal/non thermal): Yes For the Purpose of:: To decrease pain, To decrease swelling/inflammation, To increase ROM Thank you for the opportunity to evaluate your patient. For Medicare and Medicare HMO plans, please review the plan of care and approve it. It will need to be FAXED BACK to us at [phone] for Medicare purposes. Please let me know if there are questions or concerns regarding this plan of care. Physician Signature: Date: <Electronically signed by Nicole Rich PT, Cert. MDT> 11/24/17 1700 CC: Gisela Theodore DO [place] Signed For Medicare only, by signing this I certify the plan of care. Physicians Signature Date SHOULDER MIN 2 VIEWS Observed: 11/24/2017 Status: F Source: [place] 9:38 AM [facility] REPOSITORY [facility] Imaging Services [address] [place] [address] Shoulder min 2 Views MR#: [id number] Acct: [id number] Name: YANA PORRAS Rep #: [id number] : 1975 F 42 From: Rob Sepulveda MD PCP: Gisela Theodore DO Status: REG CLI Study: Shoulder min 2 Views Date of Exam: 11/24/17 Exam# [id number] Ordering Dr: Melissa Soto MD STUDY: X-RAY - RIGHT SHOULDER REASON FOR EXAM: Right shoulder pain after a fall 5 months ago. TECHNIQUE: 3 view(s) of the shoulder. COMPARISON: None. FINDINGS: Normal glenohumeral articulation. There is acromioclavicular arthrosis. There is a small os acromiale. Normal humeral head and visualized proximal humerus. The soft tissue structures are unremarkable. Normal visualized pulmonary apex. RAD/Shoulder min 2 Views IMPRESSION: Acromioclavicular arthrosis. Small os acromiale. Electronically Signed: Rob Sepulveda MD at 8:59 EDT Tel , Service support , CC: Melissa Soto MD; Gisela Theodore DO Human Resource Professional: Signed SCREENING MAMM (CAD), Observed: 06/22/2017 Status: F Source: [place] 5:17 PM [facility] REPOSITORY [facility] Imaging Services [address] [place] [address] SCREENING MAMM (CAD), BILAT MR#: [id number] Acct: [id number] Name: YANA PORRAS Rep #: [id number] : 1975 F 42 From: Reinaldo Harris MD PCP: Gisela Theodore DO Status: REG CLI Study: SCREENING MAMM (CAD), BILAT Date of Exam: 06/22/17 Exam# [id number] Ordering Dr: Gisela Theodore DO MAMMOGRAPHY - BILATERAL SCREENING REASON FOR EXAM: Female, 42 years old. Routine annual screening examination. PERTINENT HISTORY: Non-contributory. TECHNIQUE: Digital bilateral breast ramya (3D mammographic acquisition) in the CC and MLO projections. 2-D mediolateral oblique (MLO) and craniocaudad (CC) views of both breasts were obtained. CAD: Full Field Digital Mammography with Computer Added Detection was performed. COMPARISON: None. Baseline examination. FINDINGS: Breast Composition: There are scattered areas of fibroglandular density. There are no dominant masses or suspicious calcifications. No other significant abnormalities are identified. BI/SCREENING MAMM (CAD), BILAT IMPRESSION: Negative screening mammogram. Yearly followup mammogram recommended. (A) ASSESSMENT CATEGORY: BIRADS Category 1: Negative. A letter regarding these results will be sent to the patient by the facility within 30 days. Approximately 10% of breast cancers are not detected by mammography. A normal mammogram should not delay biopsy of a clinically suspicious abnormality. [id number] Electronically Signed: Reinaldo Harris MD at 9:50 EDT Tel [phone], Service support , CC: Gisela Theodore DO Human Resource Professional: Signed TRANSVAGINAL Observed: 06/08/2017 Status: F Source: [place] NON- 5:48 PM [facility] REPOSITORY [facility] Imaging Services [address] [place] [address] Transvaginal Non- MR#: [id number] Acct: [id number] Name: YANA PORRAS Rep #: [id number] : 1975 F 41 From: Jeronimo Dickinson MD PCP: Gisela Theodore DO Status: REG CLI Study: Transvaginal Non- Date of Exam: 06/08/17 Exam# [id number] Ordering Dr: Milton Harden MD STUDY: ULTRASOUND OF THE FEMALE PELVIS - COMPLETE REASON FOR EXAM: Female, 41 years old. Pelvic pain TECHNIQUE: Transvaginal COMPARISON: October 25, 2010 FINDINGS: The uterus is anteverted and is in a midline position. The uterus measures 9.8x3.9x. cm. Normal uterine cervix. The endometrium measures 3 mm in thickness, and is hyperechoic. There is no demonstrated endometrial mass. There is no demonstrated myometrial mass. I.U.D. - The patient does have an I.U.D. The right ovary is visualized. The right ovary measures 2.7x2.2x1.7 cm. There is no right ovarian cyst or ovarian mass. There is no visualized right adnexal mass or complex lesion. There is normal arterial and normal venous vascularity. The left ovary is visualized. The left ovary measures 5x4.2x3.5 cm. There is a 36 x 38 x 30mm left ovarian cyst with a single internal septation. There is no visualized left adnexal mass or complex lesion. There is normal arterial and normal venous vascularity. There is no fluid in the cul-de-sac. The pre void volume of the bladder was 498 ml. US/Transvaginal Non- IMPRESSION: The patient does have an I.U.D. 38mm septated left ovary cyst. Electronically Signed: Jeronimo Dickinson MD at 19:07 EDT , Service support , CC: Gisela Theodore DO; Milton Harden Human Resource Professional: Signed PELVIC (NON ) Observed: 06/08/2017 Status: F Source: [place] 5:35 PM [facility] REPOSITORY [facility] Imaging Services [address] [place] [address] Pelvic (Non ) MR#: [id number] Acct: [id number] Name: YANA PORRAS Rep #: [id number] : 1975 F 41 From: Jeronimo Dickinson MD PCP: Gisela Theodore DO Status: REG CLI Study: Pelvic (Non ) Date of Exam: 06/08/17 Exam# [id number] Ordering Dr: Milton Harden MD STUDY: ULTRASOUND OF THE FEMALE PELVIS - COMPLETE REASON FOR EXAM: Female, 41 years old. Pelvic pain TECHNIQUE: Transvaginal COMPARISON: October 25, 2010 FINDINGS: The uterus is anteverted and is in a midline position. The uterus measures 9.8x3.9x. cm. Normal uterine cervix. The endometrium measures 3 mm in thickness, and is hyperechoic. There is no demonstrated endometrial mass. There is no demonstrated myometrial mass. I.U.D. - The patient does have an I.U.D. The right ovary is visualized. The right ovary measures 2.7x2.2x1.7 cm. There is no right ovarian cyst or ovarian mass. There is no visualized right adnexal mass or complex lesion. There is normal arterial and normal venous vascularity. The left ovary is visualized. The left ovary measures 5x4.2x3.5 cm. There is a 36 x 38 x 30mm left ovarian cyst with a single internal septation. There is no visualized left adnexal mass or complex lesion. There is normal arterial and normal venous vascularity. There is no fluid in the cul-de-sac. The pre void volume of the bladder was 498 ml. US/Pelvic (Non ) IMPRESSION: The patient does have an I.U.D. 38mm septated left ovary cyst. Electronically Signed: Jeronimo Dickinson MD at 19:07 EDT , Service support , CC: Gisela Harden Human Resource Professional: Signed ALLERGIES ALLERGIES DATE TYPE / CODE NAME / CODE REACTION SEVERITY SOURCE 01/18/2017 Drug nortriptyline/F0060 Unknown Unknown [place] Allergy/416 63914(RXNORM) Community [id number]([facility] ED CT) Repository 09/28/2009 DRUG NORTRIPTYLINE [facility] INGREDI/419 [facility] 104712([facility] ED CT) ENCOUNTERS ENCOUNTERS ADMIT/DISCHARGE ACCOUNT NUMBER ADMITTING ENCOUNTER LOCATION SOURCE CLASS 03/05/2018 [id number] Ambulatory [facility] ding:MRI Repository 02/27/2018 [id number] [facility] ding:PT Repository 01/18/2018/02/15/19 [id number] Ambulatory [place] 19 [facility] Repository 01/03/2018/01/06/20 [id number] Ambulatory [place] 18 [facility] Repository 11/24/2017 [id number] [facility] ding:HPRAD Repository 09/04/2017 [id number] Ambulatory [facility] Repository 08/21/2017 [id number] Ambulatory [facility] Repository 08/04/2017 [id number] Ambulatory [facility] Repository 07/24/2017 [id number] Ambulatory [facility] Repository 06/22/2017 [id number] [facility] ding:OPBI Repository 06/08/2017 [id number] [facility] ding:US Repository 05/17/2017 [id number] [facility] ding:MASS Repository PAYERS PAYERS ENCOUNTER GUARANTOR PAYER SUBSCRIBER SOURCE 03/05/2018 [place] Primary [place] [id number] Insurance:ANTHEMPolic ROSSDOB: Community PROSPECT y Number: [id number] [id number] Repository 018[address]Qoz: (330) Date:0389-55-00HC [phone] () [id number] [place] [address]FK: 03/05/2018 Secondary NOT GIVENUNK [place] Insurance:SELF PAY [facility] Number: Effective Repository Date:2018-02-28 02/27/2018 [place] Primary [place] [id number] Insurance:ANTHEMPolic ROSSDOB: Community PROSPECT y Number: [id number], [place] [id number] Repository [address]Ghs: (330) Date:2005-75-85[phone] () [id number], [place] [address]FE: 02/27/2018 Secondary NOT GIVENUNK [place] Insurance:SELF PAY [facility] Number: Effective Repository Date:2017-11-24 11/24/2017 [place] Primary [place] [id number] Insurance:ANTHEMPolic ROSSDOB: Community PROSPECT y Number: [id number], [place] [id number] Repository [address]Mab: (330) Date:5554-96-57LV [phone] (HP) [id number], [place] [address]YA: 11/24/2017 Secondary NOT GIVENUNK [place] Insurance:SELF PAY [facility] Effective Repository Date:2017-11-24 09/04/2017 [place] Primary [place] [facility] RossDOB: Insurance:[place] RossDOB: System E Cross Blue [id number] Repository [place] ShieldPolicy Number: ANDRA singh [id number]: Effective Date: () 08/21/2017 [place] Primary [place] [facility] RossDOB: Insurance:[place] RossDOB: System E Cross Blue [id number] Repository [employer] ShieldPolicy Number: ANDRA singh [id number]: Effective Date: (HP) 08/04/2017 [place] Primary [place] [facility] RossDOB: Insurance:Self RossDOB: System E PayPolicy Number: [id number] Repository [place] Effective Date: ANDRA singh [id number]: (HP) 07/24/2017 [place] Primary [place] [facility] RossDOB: Insurance:[place] RossDOB: System E Cross Blue [id number] Repository [place] ShieldPolicy Number: ANDRA singh [id number]: Effective Date: (HP) 06/22/2017 [place] S Primary [place] [id number] [address] Insurance:ANTHEMPolic ROSSDOB: Community PROSPECT y Number: [id number], [place] [id number] Repository [address]Tci: (330) Date:8531-20-01FT [phone] () [id number] HELLER 89[address]WN: 06/22/2017 Secondary NOT GIVENUNK [place] Insurance:SELF PAY [facility] Number: Effective Repository Date:2017-05-24 06/08/2017 [place] Primary [place] [id number] Insurance:ANTHEMPolic ROSSDOB: Community PROSPECT y Number: [id number], [place] [id number] Repository [address]Jcg: (330) Date:3905-75-62[phone] () [id number] HELLER 21169NU: 06/08/2017 Secondary NOT GIVENUNK [place] Insurance:SELF PAY [facility] Number: Effective Repository Date:2017-06-01 05/17/2017 [place] Primary NOT GIVENUNK [place] [id number] Insurance:SELF PAY [place] Number: Effective Repository [id number]: (330) Date:2017-04-10 [phone] ()
== END ==
PROVIDERS: Family Provider Family Medicine; PCP Family Medicine; Referring Provider Family Medicine; Visit Provider Family Medicine
DX: M25.511 Pain in right shoulder (principal)
CPT/HCPCS: 73221

== ENCOUNTER → 2018-04-20 12:24 | Outpatient (CLI) | payer BC, SELFPAY ==
[2018-04-20 12:16] VITALS: BMI 54.0
--- NOTE | 2018-04-20 12:27 | RAD_ITS ---
STUDY: X-RAY CHEST REASON FOR EXAM: Female, 42 years old. Cough. TECHNIQUE: PA and lateral views of the chest. COMPARISON: None. FINDINGS: The lungs are clear and expanded. There is no demonstrated pleural abnormality. Normal size heart. Normal mediastinum and charity. Normal visualized pulmonary arteries. Normal visualized aortic arch and descending thoracic aorta. Normal visualized thoracic spine. Normal visualized ribs, clavicles, and shoulders. There is no demonstrated abnormality of the visualized soft tissue structures of the upper abdomen. RAD/Chest PA and Lateral IMPRESSION: Normal x-ray examination of the chest. Electronically Signed: Reinaldo Harris, at 12:49 EST , Service support ,
== END ==
PROVIDERS: Family Provider Family Medicine; PCP Family Medicine; Referring Provider Physician Assistant Surgical; Visit Provider Physician Assistant Surgical
DX: J20.9 Acute bronchitis, unspecified (principal)
CPT/HCPCS: 71046

== ENCOUNTER → 2020-01-23 12:16 | Outpatient (CLI) | payer BC, SELFPAY ==
[2018-11-16 08:22] VITALS: BMI 54.0
--- NOTE | 2020-01-23 12:20 | RAD_ITS ---
STUDY: X-RAY - ABDOMEN/PELVIS REASON FOR EXAM: Female, 44 years old. Right flank pain x 2 days TECHNIQUE: Single AP view of the abdomen / pelvis. COMPARISON: None. FINDINGS: Normal visualized lung bases. There is a moderate amount of colonic fecal material. The visualized liver, spleen and kidneys are grossly normal in size and morphology. A 90 cc in the pelvis. Normal visualized osseous structures. RAD/Abdomen Single View IMPRESSION: Moderate amount of fecal material is seen in the colon. IUD is seen within the pelvis. Electronically Signed: Reinaldo Harris, at 15:52 EST , Service support ,
== END ==
PROVIDERS: PCP Family Medicine; Referring Provider Family Medicine; Visit Provider Family Medicine
DX: R10.9 Unspecified abdominal pain (principal)
CPT/HCPCS: 74018

== ENCOUNTER 2020-04-16 08:23 | Outpatient (RCR) | payer BC, SELFPAY ==
[2018-11-16 08:22] VITALS: BMI 54.0
[2020-04-16] MEDS: COVID-19 VACC, MRNA(PFIZER)/PF 30 MCG/0.3 ML SYRINGE IM (18:02)
[2020-05-07] MEDS: COVID-19 VACC, MRNA(PFIZER)/PF 30 MCG/0.3 ML SYRINGE IM (17:29)
== END 2020-07-21 23:59 ==
LOC: IMMUN 08:23
PROVIDERS: PCP Family Medicine; Visit Provider Family Medicine
DX: Z23 Encounter for immunization (principal)
CPT/HCPCS: 0001A; 0002A; 91300

== ENCOUNTER → 2020-06-12 08:09 | Outpatient (CLI) | payer BC, SELFPAY ==
[2018-11-16 08:22] VITALS: BMI 54.0
[2020-06-12 10:02] LABS: Absolute Lymphocyte Count 2.65 X10^3/uL (0.83-4.51); Absolute Neutrophil Count 3.7 X10^3/uL (2.0-7.7); Basophil# 0.03 X10^3/uL; Basophil% 0.4 % (0-1); Eosinophil# 0.17 X10^3/uL; Eosinophils% 2.5 % (0-5); Hematocrit 41.9 % (37-47); Hemoglobin 13.2 g/dL (12.0-15.0); Lymphocyte # 2.65 X10^3/ul (0.83-4.51); Lymphocyte % 38.5 % (19-41); Mean Corp Hgb Conc 31.5 g/dL (32-36); Mean Corpuscular Hgb 28.8 pg (27.0-32.0); Mean Corpuscular Volume 91.5 fL (81-99); Mean Platelet Vol. 9.1 fl (6.2-12.0); Monocyte# 0.36 X10^3/uL; Monocyte% 5.2 % (0-10); NRBC Flagged by Analyzer 0 % (0-5); Neutrophil # 3.65 X10^3/uL (2.7-7.7); Neutrophil % 53.1 % (47-70); Platelet Count 359 K/mm3 (150-450); RBC Distribution Width CV 13.6 % (11.6-14.6); RBC Distribution Width SD 45.9 fl (35.1-43.9); Red Blood Count 4.58 M/mm3 (4.2-5.4); White Blood Count 6.9 K/mm3 (4.4-11.0)
[2020-06-12 10:10] LABS: Erythrocyte Sedimentation Rate 36 mm/hr (0-30)
[2020-06-12 10:30] LABS: Microalbumin,Random Urine 8.9 mg/L (NO RANGE EST.); Microalbumin:Creatinine Ratio 6.1 mg/g CRE (<30 mg/g CRE)
[2020-06-12 10:37] LABS: AST(SGOT) 14 U/L (15-37); Alanine Aminotransfer ALT/SGPT 25 U/L (13-56); Albumin, Serum 3.4 g/dL (3.2-5.0); Alkaline Phosphatase 84 U/L (45-117); Anion Gap 5 (5-15); BUN 10 mg/dL (7-18); BUN/Creat Ratio 15.9 RATIO (10-20); Calcium,Total 8.4 mg/dL (8.5-10.1); Chloride 106 mmol/L (98-107); Cholesterol 199 mg/dL (200); Creatinine, Serum 0.63 mg/dL (0.55-1.02); EST Glomerular Filtration Rate 109 mL/min (>60); Est Glom Filt Rate - Afr Amer 132 mL/min (>60); Globulin 3.5 g/dL (2.2-4.2); Glucose 85 mg/dL (74-106); High Density Lipoprotein 39 mg/dL; Potassium 3.4 mmol/L (3.5-5.1); Protein, Total 6.9 g/dL (6.4-8.2); Rheumatoid Factor < 10.0 IU/mL (<15); Sodium Level 136 mmol/L (136-145); Triglycerides 175 mg/dL; Very Low Density Lipoprotein 35 mg/dL (5-40)
[2020-06-15 10:43] LABS: ANTINUCLEAR ANTIBODIES DIRECT Negative (Negative)
[2020-06-16 11:00] LABS: CCP IgG Antibodies < 1 units (0-19)
== END ==
PROVIDERS: PCP Family Medicine; Referring Provider Family Medicine; Visit Provider Family Medicine
DX: Z00.00 Encounter for general adult medical examination without abnormal findings (principal); E11.9 Type 2 diabetes mellitus without complications; M13.0 Polyarthritis, unspecified
CPT/HCPCS: 36415; 80053; 80061; 82043; 82570; 85025; 85652; 86038; 86140; 86200; 86225; 86235; 86431

== ENCOUNTER 2020-10-27 15:22 | Outpatient (CLI) | payer BC, SELFPAY ==
[2020-10-27] MEDS: 0.9% Saline Lock 10 ML Syringe IV (15:45)
[2020-10-27 15:51] VITALS: BP 127/78; PULSE 95; RESP 16; TEMP 36.8; O2SAT 97; BMI 51.0
[2020-10-27 16:25] VITALS: BP 141/85; PULSE 97; RESP 16; TEMP 36.9; O2SAT 98
[2020-10-27 17:29] VITALS: BP 167/80; PULSE 97; RESP 16; TEMP 36.7; O2SAT 97
== END 2020-10-27 17:25 | disposition home or self-care (01) ==
LOC: ICUOUT 15:23 → MS2 15:24
PROVIDERS: PCP Family Medicine; Referring Provider Nurse Practitioner Adult Health; Visit Provider Nurse Practitioner Adult Health
DX: Z23 Encounter for immunization (principal); U07.1 COVID-19
CPT/HCPCS: J7050; M0243; A4216; Q0244

== ENCOUNTER → 2021-12-16 | Outpatient (CLI) | payer OTHER, SELFPAY | END | disposition home or self-care (01) | LOC: LABSPEC 10:25 | PROVIDERS: PCP Family Medicine; Visit Provider Physician Assistant | DX: J02.9 Acute pharyngitis, unspecified (principal) | CPT/HCPCS: 87070 ==

== ENCOUNTER → 2022-04-22 | Outpatient (CLI) | payer OTHER, SELFPAY | END | disposition home or self-care (01) | LOC: LABSPEC 09:46 | PROVIDERS: PCP Family Medicine; Visit Provider Family Medicine | DX: R30.0 Dysuria (principal) | CPT/HCPCS: 87086 ==

== ENCOUNTER → 2022-05-23 | Outpatient (CLI) | payer OTHER, SELFPAY | END | disposition home or self-care (01) | LOC: PSN 08:37 | PROVIDERS: PCP Family Medicine | DX: Z01.818 Encounter for other preprocedural examination (principal); E66.01 Morbid (severe) obesity due to excess calories; R06.83 Snoring; G47.30 Sleep apnea, unspecified; R53.83 Other fatigue; R63.8 Other symptoms and signs concerning food and fluid intake | CPT/HCPCS: 93005 ==